=== PATIENT | male | born 1945 | race Caucasian/White ===

== ENCOUNTER → 2017-10-16 | Day surgery (SDC) | payer OTHER ==
[2017-10-13 15:55] LABS: BASOPHILS % 0.8 % (0.0-1.0); EOSINOPHILS # (AUTO) 0.1 (0.0-0.4); EOSINOPHILS % 2.6 % (0.0-6.0); HEMATOCRIT 40.4 % (38.2-49.6); HEMOGLOBIN 13.5 g/dL (14.0-18.0); LYMPHOCYTES # (AUTO) 1.2 (1.0-3.2); LYMPHOCYTES % 22.9 % (18.0-39.1); MEAN CORPUSCULAR HEMOGLOBIN 29.1 pg (28-32); MEAN CORPUSCULAR HGB CONC 33.4 g/dL (31-35); MEAN CORPUSCULAR VOLUME 87.1 fL (81-99); MONOCYTES # (AUTO) 0.8 (0.2-0.8); MONOCYTES % 16.1 % (4.4-11.3); NEUTROPHILS # (AUTO) 2.9 (2.1-6.9); NEUTROPHILS % 57.2 % (38.7-80.0); PLATELET COUNT 158 x10e3/uL (140-360); RED BLOOD COUNT 4.64 x10e6/uL (4.3-5.7); RED CELL DISTRIBUTION WIDTH 14.9 % (11.7-14.4)
[2017-10-13 16:09] LABS: CALCIUM 9.6 mg/dL (8.4-10.2); CREATININE, SERUM 1.45 mg/dL (0.72-1.25)
--- NOTE | 2017-10-13 17:08 | Diagnostic Imaging Report ---
PROCEDURE: Frontal and lateral views of the chest. COMPARISON: 06/18/12 INDICATIONS: PRE-OP FOR LEFT WRIST CYST REMOVAL FINDINGS: Lines/tubes: Triple lead left chest wall cardiac device in place. Lungs: The lungs are well inflated and clear. There is no evidence of pneumonia or pulmonary edema. Pleura: There is no pleural effusion or pneumothorax. Heart and mediastinum: The heart and the mediastinum are normal. Bones: No acute bony abnormality. IMPRESSION: 1. No acute cardiopulmonary disease. Dictated by: Mo Meyer M.D. on 10/13/2017 at 17:13 Electronically approved by: Mo Meyer M.D. on 10/13/2017 at 17:13
[~2017-10-16] MED LIST: B 12; BUPIVACAINE HCL 0.5% 10ML MPF VIAL INJ ONE; CHOLESTEROL MED; CLINDAMYCIN 600MG/D5W 50ML 50 ML IV ONE; DIGOXIN250 MCG PO; FENTANYL CITRATE/PF 100MCG/2 ML INJ ONE; GLIPIZIDE5 MG PO; GLYBURID-METFO1 EAC3 PO; HYDROCODONE-AP1 EA15 PO; LANSOPRAZOLE30 MG; LEVOFLOXACIN PO; LIDOCAINE HCL 2% LOCAL INJ 5 ML SDV VIAL INJ ONE; MUPIROCIN 2% OINT 22 GM TUBE ONE; ONDANSETRON HCL INJ 2 MG/ML VIAL ONE; PROPOFOL IV EMULSION 10 MG/ML 20 ML VIAL ONE; SEVOFLURANE INHAL SOLN 250 ML PEN BTL ONE; TIZANIDINE HCL2 M1; TRULICITY; VIT; Z FISH OIL; Z MELATONIN PO; Z.0.COREG3.125 MG PO; Z.0.FUROSEMIDE40 MG PO; Z.0.KLOR-CON M2020 M PO; Z.0.LISINOPRIL10 MG PO; ZOLPIDEM TARTRA10 MG PO; [UNRECOGNIZED DRUG - OTHER] PO; [UNRECOGNIZED DRUG - OTHER] PO; [UNRECOGNIZED DRUG - OTHER] PO; [UNRECOGNIZED DRUG - OTHER] PO
--- NOTE | 2017-10-16 12:27 | Operative Report ---
DATE OF PROCEDURE: October 16, 2017 PREOPERATIVE DIAGNOSIS: Left wrist volar ganglion cyst. POSTOPERATIVE DIAGNOSIS: Left wrist volar ganglion cyst. PROCEDURE PERFORMED: Excision of left wrist volar ganglion cyst. ANESTHESIA: General. HISTORY: The patient is a 72-year-old male with a left wrist volar ganglion cyst. The risks, benefits and alternatives of treatment were discussed with the patient. He is prepared to undergo the procedure outlined. DETAILS OF PROCEDURE: Patient was marked preoperatively in the holding area. He was brought to the operating theater; and after the induction of adequate general anesthesia, he was prepped and draped in a supine position. A time out was performed. A longitudinal incision was marked out over the prominence of the cyst. The left upper extremity was exsanguinated, and a tourniquet was inflated to a pressure of 250 mmHg. The incision was made through the skin and subcutaneous tissues, and all venous tributaries were controlled with bipolar cautery. The cyst was identified. It was radial to the radial artery and appeared to be emanating from the CMC joint. The cyst was traced along with its communicating stalk to the level of the CMC joint. The cyst was then removed in its entirety. The wound was irrigated with bacteriostatic saline. The rent in the joint capsule was then closed using 4-0 Vicryl in an interrupted fashion. The skin was approximated with 5-0 nylon in an interrupted horizontal mattress fashion. Marcaine field block was performed at the operative site. Tourniquet was deflated. All the fingers pinked up nicely, and a sterile, bulky, conforming bandage was applied. The patient tolerated the procedure well. He was brought to the recovery room in satisfactory condition and discharged with a postoperative instruction sheet as well as a followup appointment. Job#: [id number]
== END | disposition home or self-care (01) ==
LOC: OR 05:42
PROVIDERS: ATTEND Plastic Surgery
DX: M67.432 Ganglion, left wrist (principal); I11.0 Hypertensive heart disease with heart failure; I50.9 Heart failure, unspecified; E11.9 Type 2 diabetes mellitus without complications; Z90.5 Acquired absence of kidney; N28.9 Disorder of kidney and ureter, unspecified; Z79.82 Long term (current) use of aspirin; Z79.84 Long term (current) use of oral hypoglycemic drugs; Z95.810 Presence of automatic (implantable) cardiac defibrillator; Z85.528 Personal history of other malignant neoplasm of kidney
CPT/HCPCS: 25111; 36415 ×2; 71046; 80048; 82948; 85025; 88304; 93005; J2001; J2405

== ENCOUNTER 2020-05-02 16:05 | Observation (INO) | payer BC ==
[~2020-05-02] VITALS: Ht 165.1 cm; Wt 71.3 kg
[~2020-05-02 16:05] MED LIST changes: -BUPIVACAINE HCL 0.5% 10ML MPF VIAL INJ ONE; -CLINDAMYCIN 600MG/D5W 50ML 50 ML IV ONE; -FENTANYL CITRATE/PF 100MCG/2 ML INJ ONE; -LIDOCAINE HCL 2% LOCAL INJ 5 ML SDV VIAL INJ ONE; -MUPIROCIN 2% OINT 22 GM TUBE ONE; -ONDANSETRON HCL INJ 2 MG/ML VIAL ONE; -PROPOFOL IV EMULSION 10 MG/ML 20 ML VIAL ONE; -SEVOFLURANE INHAL SOLN 250 ML PEN BTL ONE
[2020-05-02] MEDS ORDERED: ASPIRIN 81 MG CHEW TAB PO ONE ×2 (16:15→20:15)
[2020-05-02] MEDS ORDERED: DEXTROSE 5% 1,000 ML IV STA (16:15)
[2020-05-02 16:29] LABS: BASOPHILS # (AUTO) 0.1 (0.0-0.1); BASOPHILS % 0.6 % (0.0-1.0); EOSINOPHILS # (AUTO) 0.1 (0.0-0.4); EOSINOPHILS % 0.5 % (0.0-6.0); HEMATOCRIT 29.8 % (38.2-49.6); HEMOGLOBIN 9.3 g/dL (14.0-18.0); LYMPHOCYTES # (AUTO) 0.5 (1.0-3.2); LYMPHOCYTES % 3.9 % (18.0-39.1); MEAN CORPUSCULAR HGB CONC 31.2 g/dL (31-35); MEAN CORPUSCULAR VOLUME 99.3 fL (81-99); MONOCYTES # (AUTO) 0.9 (0.2-0.8); MONOCYTES % 6.4 % (4.4-11.3); NEUTROPHILS # (AUTO) 11.6 (2.1-6.9); PLATELET COUNT 102 x10e3/uL (140-360); RED CELL DISTRIBUTION WIDTH 20.4 % (11.7-14.4)
[2020-05-02 16:44] LABS: ALBUMIN 3.3 g/dL (3.5-5.0); ALBUMIN/GLOBULIN RATIO 0.8 (0.8-2.0); ANION GAP 16.8 mmol/L (8-16); CALCIUM 7.6 mg/dL (8.4-10.2); CREATININE, SERUM 2.62 mg/dL (0.72-1.25); POTASSIUM 4.8 mmol/L (3.5-5.1)
[2020-05-02 16:51] LABS: CREATINE KINASE MB 10.6 ng/mL (0-5.0)
[2020-05-02] MEDS ORDERED: DEXTROSE 50% SYRINGE 50 ML IV ONE (17:00)
[2020-05-02] MEDS ORDERED: DIPHENOXYLATE/ATROPINE TAB PO STA (18:09)
[2020-05-02 20:15] VITALS: BP 104/70
[2020-05-02] MEDS ORDERED: DEXTROSE 5%/0.45% SOD CHL 1,000 ML IV STA (21:31)
[2020-05-02] MEDS ORDERED: DIPHENOXYLATE/ATROPINE TAB ONE (21:42)
[2020-05-02 22:00] VITALS: BP 104/70
[2020-05-02] MEDS ORDERED: NEXIUM20 MG PO (23:22)
[2020-05-02] MEDS ORDERED: TRULICITY1.5 MG/0.5 (23:22)
[2020-05-02] MEDS ORDERED: ULTRAM 50MG50 MG (23:22)
[2020-05-02] MEDS ORDERED: PREGABALIN50 MG (23:22)
[2020-05-02] MEDS ORDERED: ATORVASTATIN CA40 MG (23:22)
[2020-05-02] MEDS ORDERED: TRESIBA FL200 UNIT/1 (23:22)
[2020-05-03] VITALS (7 sets, daily range): BP systolic 93–112; BP diastolic 44–80
[2020-05-03] MEDS ORDERED: BENZONATATE 100 MG CAP PO PRN (00:15)
[2020-05-03] MEDS ORDERED: POTASSIUM CHLORIDE 20 MEQ TAB CR PO PRN (00:15)
[2020-05-03] MEDS ORDERED: MELATONIN 5 MG TABLET PO PRN (00:15)
[2020-05-03] MEDS ORDERED: POLYETHYLENE GLYCOL 3350 17 GM PACK PO PRN (00:15)
[2020-05-03] MEDS ORDERED: ONDANSETRON HCL INJ 2MG/ML 2ML 2 MG/ML VIAL IV PRN (00:15)
[2020-05-03] MEDS ORDERED: ALBUTEROL/IPRATROPIUM 3 ML NEB NEB PRN (00:15)
[2020-05-03] MEDS ORDERED: ACETAMINOPHEN 325 MG TAB PO PRN (00:15)
[2020-05-03] MEDS ORDERED: DEXTROSE 50% SYRINGE 50 ML IV PRN (00:15)
[2020-05-03] MEDS ORDERED: LIDOCAINE 4% PATCH TP PRN (00:15)
[2020-05-03] MEDS ORDERED: SIMETHICONE 80 MG CHEW PO PRN (00:15)
[2020-05-03] MEDS ORDERED: HYDRALAZINE HCL 20 MG/ML VIAL IV PRN (00:15)
[2020-05-03] MEDS ORDERED: DOCUSATE SODIUM 100 MG CAP PO PRN (00:15)
[2020-05-03] MEDS ORDERED: DIPHENHYDRAMINE HCL 25 MG CAP PO PRN (00:15)
[2020-05-03] MEDS ORDERED: TRAMADOL HCL 50 MG TAB PO PRN (00:15)
[2020-05-03 00:38] LABS: BASOPHILS % 0.5 % (0.0-1.0); EOSINOPHILS # (AUTO) 0.2 (0.0-0.4); EOSINOPHILS % 2.2 % (0.0-6.0); HEMATOCRIT 27.7 % (38.2-49.6); HEMOGLOBIN 8.9 g/dL (14.0-18.0); LYMPHOCYTES # (AUTO) 0.5 (1.0-3.2); MEAN CORPUSCULAR HEMOGLOBIN 31.6 pg (28-32); MEAN CORPUSCULAR HGB CONC 32.1 g/dL (31-35); MEAN CORPUSCULAR VOLUME 98.2 fL (81-99); MONOCYTES # (AUTO) 0.7 (0.2-0.8); MONOCYTES % 7.8 % (4.4-11.3); NEUTROPHILS # (AUTO) 7.1 (2.1-6.9); NEUTROPHILS % 83.3 % (38.7-80.0); PLATELET COUNT 96 x10e3/uL (140-360); RED BLOOD COUNT 2.82 x10e6/uL (4.3-5.7); RED CELL DISTRIBUTION WIDTH 19.9 % (11.7-14.4)
[2020-05-03 00:49] LABS: CREATINE KINASE MB 6.2 ng/mL (0-5.0)
[2020-05-03 01:08] LABS: ALBUMIN 3.1 g/dL (3.5-5.0); ALBUMIN/GLOBULIN RATIO 0.8 (0.8-2.0); ANION GAP 16.6 mmol/L (8-16); CALCIUM 7.7 mg/dL (8.4-10.2); CREATININE, SERUM 2.19 mg/dL (0.72-1.25); POTASSIUM 4.6 mmol/L (3.5-5.1)
[2020-05-03 01:22] LABS: MAGNESIUM 2.2 MG/DL (1.3-2.1); PHOSPHORUS 4.5 MG/DL (2.3-4.7)
[2020-05-03 01:44] LABS: THYROID STIMULATING HORMONE 0.823 uIU/mL (0.350-4.940)
[2020-05-03 08:35] LABS: CREATINE KINASE MB 5.2 ng/mL (0-5.0)
[2020-05-03] MEDS: ASPIRIN 81 MG ENTERIC COATED PO SCH (09:33)
[2020-05-03] MEDS: PANTOPRAZOLE SOD 40 MG TABEC PO SCH (09:33)
[2020-05-03] MEDS: CARVEDILOL 12.5 MG TAB PO SCH ×2 (09:33→16:53)
[2020-05-03 10:23] LABS: CLARITY,URINE CLEAR (CLEAR); COLOR,URINE YELLOW (YELLOW); KETONES,URINE NEGATIVE (NEGATIVE); LEUKOCYTE ESTERASE ,URINE NEGATIVE (NEGATIVE); NITRITE,URINE NEGATIVE (NEGATIVE); PROTEIN,URINE DIPSTICK NEGATIVE (NEGATIVE); URINE UROBILINOGEN 0.2 mg/dL (0.2 - 1)
[2020-05-03 10:28] LABS: BACTERIA,URINE RARE /HPF; EPITHELIAL CELLS,URINE FEW /LPF; RBC,URINE 0-5 /HPF (0-5); WBC,URINE (MAN) 0-5 /HPF (0-5)
[2020-05-03 15:04] LABS: FREE T4 (FREE THYROXINE) 0.95 ng/dL (0.8-1.8); THYROID STIMULATING HORMONE 0.677 uIU/mL (0.350-4.940)
[2020-05-03] MEDS: INSULIN LISPRO 100 UNIT/1 ML 3ML VIAL SQ SCH ×2 (16:30→20:31)
[2020-05-03] MEDS: HEPARIN SOD (PORCINE) 5,000 UNIT/ML VIAL SC SCH (21:00)
[2020-05-04 01:30] VITALS: BP 112/57
[2020-05-04 04:57] VITALS: BP 94/48
[2020-05-04 05:03] LABS: BASOPHILS # (AUTO) 0.1 (0.0-0.1); BASOPHILS % 1.4 % (0.0-1.0); EOSINOPHILS # (AUTO) 0.6 (0.0-0.4); EOSINOPHILS % 11.3 % (0.0-6.0); HEMATOCRIT 28.2 % (38.2-49.6); HEMOGLOBIN 9.1 g/dL (14.0-18.0); LYMPHOCYTES # (AUTO) 0.7 (1.0-3.2); LYMPHOCYTES % 13.1 % (18.0-39.1); MEAN CORPUSCULAR HEMOGLOBIN 32.4 pg (28-32); MEAN CORPUSCULAR HGB CONC 32.3 g/dL (31-35); MEAN CORPUSCULAR VOLUME 100.4 fL (81-99); MONOCYTES # (AUTO) 0.6 (0.2-0.8); MONOCYTES % 11.2 % (4.4-11.3); NEUTROPHILS # (AUTO) 3.5 (2.1-6.9); NEUTROPHILS % 62.6 % (38.7-80.0); PLATELET COUNT 73 x10e3/uL (140-360); RED BLOOD COUNT 2.81 x10e6/uL (4.3-5.7); RED CELL DISTRIBUTION WIDTH 20.2 % (11.7-14.4)
[2020-05-04 05:25] LABS: ANION GAP 13.4 mmol/L (8-16); CREATININE, SERUM 1.49 mg/dL (0.72-1.25); POTASSIUM 4.4 mmol/L (3.5-5.1)
[2020-05-04] MEDS ORDERED: INSULIN GLARGINE 100 UNITS/ML VIAL SQ SCH (06:00)
[2020-05-04] MEDS: INSULIN LISPRO 100 UNIT/1 ML 3ML VIAL SQ SCH ×2 (07:30→11:30)
[2020-05-04 08:11] VITALS: BP 93/62
[2020-05-04 08:20] VITALS: BP 93/62
[2020-05-04] MEDS: ASPIRIN 81 MG ENTERIC COATED PO SCH (08:48)
[2020-05-04] MEDS: PANTOPRAZOLE SOD 40 MG TABEC PO SCH (08:48)
[2020-05-04] MEDS: HEPARIN SOD (PORCINE) 5,000 UNIT/ML VIAL SC SCH (08:50)
[2020-05-04] MEDS ORDERED: ONDANSETRON HCL 4 MG ORAL DISINTEGRATING TAB PO PRN (12:15)
[2020-05-04 12:28] VITALS: BP 103/63
== END 2020-05-04 15:41 | disposition home or self-care (01) ==
LOC: ER 17:03 → ERHOLD 20:04 → MED/SURG2 22:38
PROVIDERS: ADMIT Internal Medicine; ATTEND Internal Medicine
DX: E11.649 Type 2 diabetes mellitus with hypoglycemia without coma (principal); Z85.51 Personal history of malignant neoplasm of bladder; G89.4 Chronic pain syndrome; E11.40 Type 2 diabetes mellitus with diabetic neuropathy, unspecified; Z20.822 Contact with and (suspected) exposure to COVID-19; I25.10 Atherosclerotic heart disease of native coronary artery without angina pectoris; I12.9 Hypertensive chronic kidney disease with stage 1 through stage 4 chronic kidney disease, or unspecified chronic kidney disease; E11.22 Type 2 diabetes mellitus with diabetic chronic kidney disease; N18.9 Chronic kidney disease, unspecified; Z79.4 Long term (current) use of insulin
CPT/HCPCS: 36415 ×3; 71045; 80048; 80053 ×2; 81001; 82550 ×2; 82553 ×2; 82948 ×3; 83036; 83735; 84100; 84439; 84443; 84484 ×2; 84681; 85025 ×3; 93005; 97116; 97161; 99284; G0378 ×3; J1644 ×2; S0164 ×2; U0002

== ENCOUNTER 2020-11-22 10:55 | Outpatient (RCR) | payer BC ==
[~2020-11-22 10:55] MED LIST changes: +ATORVASTATIN CA40 MG; +NEXIUM20 MG PO; +PREGABALIN50 MG; +TRESIBA FL200 UNIT/1; +TRULICITY1.5 MG/0.5; +ULTRAM 50MG50 MG
== END 2020-11-28 ==
LOC: PT 10:55
PROVIDERS: ATTEND Physical Medicine & Rehabilitation
DX: S72.011A Unspecified intracapsular fracture of right femur, initial encounter for closed fracture (principal)

== ENCOUNTER → 2020-12-28 | Outpatient (RCR) | payer BC | LOC: PT 11-29 09:37 | PROVIDERS: ATTEND Physical Medicine & Rehabilitation | DX: S72.011A Unspecified intracapsular fracture of right femur, initial encounter for closed fracture (principal) ==

== ENCOUNTER 2021-01-11 10:00 | Outpatient (RCR) | payer BC | END 2021-01-28 | LOC: PT 10:00 | PROVIDERS: ATTEND Physical Medicine & Rehabilitation | DX: S72.011A Unspecified intracapsular fracture of right femur, initial encounter for closed fracture (principal) | CPT/HCPCS: 97139 ==

== ENCOUNTER → 2021-09-27 | Outpatient (RCR) | payer BC | LOC: PT 09-12 15:03 | PROVIDERS: ATTEND Neurological Surgery | DX: Z87.81 Personal history of (healed) traumatic fracture (principal); M54.2 Cervicalgia; R09.89 Other specified symptoms and signs involving the circulatory and respiratory systems; R53.81 Other malaise; Z91.81 History of falling ==

== ENCOUNTER 2021-10-26 13:00 | Outpatient (RCR) | payer BC | END 2021-10-28 | LOC: PT 13:00 | PROVIDERS: ATTEND Neurological Surgery | DX: Z87.81 Personal history of (healed) traumatic fracture (principal); Z91.81 History of falling; M54.2 Cervicalgia; R09.89 Other specified symptoms and signs involving the circulatory and respiratory systems; R53.81 Other malaise ==

== ENCOUNTER 2021-11-23 13:00 | Outpatient (RCR) | payer BC | END 2021-11-28 | LOC: PT 13:00 | PROVIDERS: ATTEND Student in an Organized Health Care Education/Training Program | DX: M54.2 Cervicalgia (principal); R09.89 Other specified symptoms and signs involving the circulatory and respiratory systems; R53.81 Other malaise; Z91.81 History of falling; Z87.81 Personal history of (healed) traumatic fracture ==

== ENCOUNTER 2021-12-10 13:00 | Outpatient (RCR) | payer BC | END 2021-12-28 | LOC: PT 13:00 | PROVIDERS: ATTEND Student in an Organized Health Care Education/Training Program | DX: M54.2 Cervicalgia (principal); R09.89 Other specified symptoms and signs involving the circulatory and respiratory systems; R53.81 Other malaise; Z91.81 History of falling; Z87.81 Personal history of (healed) traumatic fracture ==